=== PATIENT | female | born 1960 | race Two or more races ===

== ENCOUNTER 2016-04-15 07:43 | Emergency (ER) | payer OTHER ==
[2016-04-15] MEDS ORDERED: ONDANSETRON 4 MG/2ML 2 ML VIAL ONE (08:48)
[2016-04-15] MEDS ORDERED: LACTATED RINGERS 1,000 ML ONE (08:48)
[2016-04-15] MEDS ORDERED: MORPHINE SULFATE 4 MG/ML SYRINGE ONE (08:48)
[2016-04-15 09:00] LABS: ABSOLUTE NEUTROPHIL COUNT 7.7 K/mm3 (1.8-7.7); HEMATOCRIT 42.5 % (37.0-47.0); IMM NEUT% 0.3 % (0-1); LYMPH # 0.9 (1.0-4.8); LYMPH % 9.7 % (15-45); MEAN CELL VOLUME 90.4 fl (81.0-99.0); MEAN CORPUSCULAR HEMOGLOBIN 31.9 pg (27.0-31.0); MEAN CORPUSCULAR HGB CONC 35.3 g/dl (33.0-37.0); MEAN PLATELET VOLUME 9.3 fl (7.4-10.4); MONO # 0.8 (0.0-0.8); MONO % 8.1 % (4-12); NEUT % 81.9 % (43-75); PLATELET COUNT 162 K/mm3 (130-400); RED CELL DISTRIBUTION WIDTH 11.2 % (11.5-14.5)
[2016-04-15 09:02] LABS: I-STAT CREATININE 0.9 mg/dL (0.6-1.3)
--- NOTE | 2016-04-15 09:28 | RAD ---
Exam: Two-view chest COMPARISON: None INDICATION: Bodyaches, headache, fever, flu. FINDINGS: PA and lateral views of the chest were obtained. Cardiac silhouette is within normal limits. Lungs are well-inflated. There is no focal airspace disease or pleural effusion. Bones of the chest wall within normal limits. Numerable surgical clips are seen within the left upper quadrant. IMPRESSION: No acute pulmonary process.
[2016-04-15 10:20] LABS: ALBUMIN 3.7 gm/dL (3.5-5.7)
== END 2016-04-15 10:40 | disposition home or self-care (01) ==
LOC: ED 07:43
DX: E86.0 Dehydration (principal); J11.1 Influenza due to unidentified influenza virus with other respiratory manifestations; I10 Essential (primary) hypertension
CPT/HCPCS: 85025; 80047; 80053; 71020; 96375; 99283 ×2; 96374; 96361 ×2; J2270; J2405; J7120